=== PATIENT | female | born 1950 | race Hispanic/Latino ===

== ENCOUNTER 2024-02-21 08:24 | Emergency (ER) | payer MEDICARE ==
[~2024-02-21] VITALS: Ht 157.5 cm; Wt 63.5 kg
[2024-02-21 08:46] VITALS: PULSE 74; RESP 19; TEMP 98.6; O2SAT 99
== END 2024-02-21 10:34 | disposition home or self-care (01) ==
LOC: ER 08:37
DX: I10 Essential (primary) hypertension (principal); E11.9 Type 2 diabetes mellitus without complications; E78.5 Hyperlipidemia, unspecified
CPT/HCPCS: 99282